=== PATIENT | female | born 1965 | race Caucasian/White ===

== ENCOUNTER → 2023-02-28 10:45 | Outpatient (CLI) | payer OTHER, SELFPAY ==
--- NOTE | 2023-03-23 08:52 | PM.PFT.1 ---
Pulmonary Function Test Referral & Results Date Patient Seen: 02/28/23 Results: The spirometry demonstrates an FVC of 3.70 L which is 104% of predicted. The FEV1 was measured at 2.65 L which is 96% of predicted. The FEV1/FVC ratio was 72 which is 90% of predicted. Following the administration of bronchodilator there was no notable change to above normal numbers. Lung volumes show an SVC of 3.61 L which is 111% of predicted. The diffusing capacity was measured at 17.55 which is 69% of predicted. No hemoglobin value was provided, so no correction for potential anemia could be made, if appropriate. The maximum voluntary ventilation was normal Interpretation: This study demonstrates normal spirometry There is a [id number] reduction diffusing capacity suggesting disease at the capillary alveolar level
== END ==
PROVIDERS: PCP Family Medicine; Referring Provider Internal Medicine Rheumatology; Visit Provider Internal Medicine Rheumatology
DX: M34.1 CR(E)ST syndrome (principal); Z87.891 Personal history of nicotine dependence; J98.8 Other specified respiratory disorders
CPT/HCPCS: 94060; 94726; 94729

== ENCOUNTER → 2023-03-10 10:24 | Outpatient (CLI) | payer OTHER, SELFPAY ==
--- NOTE | 2023-03-10 | DI.ECHO.S_ITS ---
[place] +---------+ : : [address] : [address] : : : : [id number] : : : : Phone: [phone]---------+ Echocardiogram Report + + :Name: KATIE HILL Study Date: 03/10/2023 Height: 65 in : :[facility] ReadingLocation: Weight: 104 lb : : Gender: Female BSA: 1.5 m2 : :: 1965 Age: 57 yrs BP: 139/90 mmHg: :Reason For Study: CREST Syndrome : :Ordering Physician: CORNELL, : :JOSEP Performed By: Vivian Frost : :Referring: JOSEP SARABIA : + + Interpretation Summary The left ventricle is normal in size. Left ventricular systolic function appears normal without focal wall motion abnormalities. The ejection fraction is estimated to be 55-60%. Diastolic parameters suggest probable normal left ventricular diastolic function and normal filling pressures. The right ventricle is normal size. The right ventricular systolic function is normal. The right ventricular systolic pressure is estimated to be at least 20 mmHg based on an estimated right atrial pressure of 3 mm Hg. The left atrial size is normal. Right atrial size is normal. There is mild to moderate mitral regurgitation. There is mild to moderate tricuspid regurgitation. The aortic root is normal size. Procedure: A two-dimensional transthoracic echocardiogram with color flow and Doppler was performed. The study quality was technically adequate. There is no prior echocardiogram noted for this patient. The patient was in normal sinus rhythm during the exam. Left Ventricle: The left ventricle is normal in size. There is normal left ventricular wall thickness. Left ventricular systolic function appears normal without focal wall motion abnormalities. The ejection fraction is estimated to be 55-60%. Diastolic parameters suggest probable normal left ventricular diastolic function and normal filling pressures. Right Ventricle: The right ventricle is normal size. The right ventricular systolic function is normal. Atria: The left atrial size is normal. Right atrial size is normal. There is no Doppler evidence for an interatrial shunt. Mitral Valve: The mitral valve leaflets appear mildly thickened, but open well. There is no mitral valve stenosis. There is mild to moderate mitral regurgitation. Aortic Valve: The aortic valve is trileaflet. The aortic valve opens well. There is no aortic valve stenosis. No aortic regurgitation is present. Tricuspid Valve: The tricuspid valve is normal. There is no tricuspid stenosis. There is mild to moderate tricuspid regurgitation. The right ventricular systolic pressure is estimated to be at least 20 mmHg based on an estimated right atrial pressure of 3 mm Hg. Pulmonic Valve: The pulmonic valve is not well visualized. There is no pulmonic valvular stenosis. There is no pulmonic valvular regurgitation. Great Vessels: The aortic root is normal size. The ascending aorta is normal in size. The pulmonary artery is normal size. The IVC is of normal diameter and collapses greater than 50% with a sniff. This suggests a low right atrial pressure of 3 mm Hg. Pericardium/ Pleura There is no pericardial effusion. There is no pleural effusion. MMode/2D Measurements & Calculations LVIDd: 3.8 cm LVOT diam: 1.6 cm LVIDs: 2.7 cm Ao root diam: 2.6 cm FS: 28.9 % asc Aorta Diam: 3.1 cm EPSS: 0.30 cm IVSd: 0.70 cm LVPWd: 0.80 cm LV marquez. diameter/BSA (cm/m^2): 2.5 LV sys. diameter/BSA (cm/m^2): 1.8 LA A2 area: 13.0 cm2 RA long axis: 4.6 cm LA A4 area: 10.5 cm2 RA area: 12.8 cm2 LA length (vol): 4.8 cm RA vol: 30.5 ml LA vol: 24.1 ml RA : 20.4 ml/m2 LA vol index: 16.1 ml/m2 RVD1 (basal): 2.7 cm LVLs ap4: 6.3 cm LVLd ap2: 6.3 cm TAPSE_phl: 2.3 cm LVLs ap2: 5.3 cm Doppler Measurements & Calculations Ao V2 max: 99.0 cm/sec LVOT Max Hiram: 78.6 cm/sec Ao V2 mean: 69.8 cm/sec LV V1 max P.5 mmHg Ao max P.0 mmHg LV V1 VTI: 17.5 cm Ao mean P.0 mmHg LINETTE(I,D): 1.6 cm2 Ao V2 VTI: 22.4 cm LINETTE(V,D): 1.6 cm2 sev ratio: 0.78 LINETTE indexed to BSA (cm^2/m^2): 1.0 MV E max hiram: 74.7 cm/sec TR max hiram: 208.0 cm/sec MV A max hiram: 54.5 cm/sec TR max P.4 mmHg MV E/A: 1.4 PA V2 max: 62.7 cm/sec Med Peak E' Hiram: 7.7 cm/sec PA V2 mean: 45.2 cm/sec E/E' med: 9.7 PA mean P.0 mmHg Lat Peak E' Hiram: 9.4 cm/sec PA pr(Accel): 8.8 mmHg E/E' lat: 7.9 E/e' average: 8.8 MV dec time: 0.19 sec SV(LVOT): 35.1 ml AV VR_phl: 0.79 LINETTE(VTI)/BSA_phl: 1.1 Reading Physician:[id number] PM
--- NOTE | 2023-03-10 | DI.RAD.S_ITS ---
PROCEDURE: FL BARIUM SWALLOW INDICATIONS: CR(E)ST SYNDROME COMPARISON: None. FINDINGS: Function: There is normal esophageal peristalsis. Gastroesophageal reflux is seen. There is normal transit of a calibrated barium tablet through the esophagus into the stomach. Morphology: Air-contrast images demonstrate normal mucosal morphology. Single contrast views show no esophageal strictures, extrinsic mass effects, or diverticula. Limited images of the stomach demonstrate normal appearance. IMPRESSION: Gastroesophageal reflux. Dictated by: Aracelis Moulton M.D. on 03/12/2023 at 11:45 Approved by: Aracelis Moulton M.D. on 03/12/2023 at 11:47
== END ==
PROVIDERS: PCP Family Medicine; Referring Provider Internal Medicine Rheumatology; Visit Provider Internal Medicine Rheumatology
DX: I08.1 Rheumatic disorders of both mitral and tricuspid valves (principal); M34.1 CR(E)ST syndrome; K21.9 Gastro-esophageal reflux disease without esophagitis
CPT/HCPCS: 74220; 93306